=== PATIENT | male | born 1970 | race Caucasian/White ===

== ENCOUNTER 2017-10-01 08:10 | Outpatient (CLI) | payer MEDICARE ==
[2017-10-01 08:54] LABS: Anion Gap 14 mmol/L (10-20); BUN (Urea Nitrogen) 17 mg/dL (8.9-20.6); Calc. Creatinine Clearance 0 mL/min (70-130); Calcium 9.3 mg/dL (7.8-10.44); Carbon Dioxide 22 mmol/L (22-29); Chloride 107 mmol/L (98-107); Estimated GFR-MDRD Greater than 90
--- NOTE | 2017-10-01 12:13 | CT ---
CT ABDOMEN WITH AND WITHOUT IV CONTRAST: Date: 10/01/17 HISTORY: Follow-up kidney cysts. FINDINGS: Correlation is made with the bilateral renal ultrasound dated 03/12/17. The lung bases are clear. There is diffusely decreased attenuation of the liver compared to the sple en consistent with fatty infiltration. The spleen measures 13.0 cm in length. No calcified gallstone s are seen. The pancreas and adrenal glands are normal. No free air, free fluid, or lymphadenopathy seen in the abdomen. No calculi seen in the kidneys or the visualized portions of the ureters. No hydroureteronephrosis n oted on either side. Postcontrast images demonstrate no evidence of a solid enhancing mass on either side. There are low density lesions in the kidneys bilaterally, some of which correspond to the cys ts seen on the ultrasound. The largest mass is consistent with cyst and is located at the inferior p ole of the right kidney measuring 3.5 cm. In the medial aspect of the right mid kidney, there is a 2 .3 cm cystic mass which does not meet CT criteria for a simple cyst, but does not demonstrate defini te abnormal enhancement. (Enhancement is about 15 Hounsfield units.) The other smaller lesions are t oo small to characterize. The appendix is normal. There is colonic diverticulosis. Vascular calcific ations are present without evidence of aneurysmal dilatation of the abdominal aorta. There are degen erative changes in the spine. IMPRESSION: 1. Fatty liver. 2. Borderline splenomegaly. 3. No CT evidence of urinary tract calculi or obstruction. 4. Renal cysts. 5. Indeterminate small renal lesions. 6. Indeterminate right mid renal mass corresponding to the complex cyst on the ultrasound. Size of this mass is stable since the ultrasound. RECOMMENDATION: A follow-up exam is recommended in 6 months. POS: MARKUS
[2017-10-01] MEDS ORDERED: Iopamidol 370 76% 100 ML VIAL ONE (15:42)
== END 2017-10-01 08:11 | disposition home or self-care (01) ==
LOC: CT 08:10
PROVIDERS: ATTEND Urology
DX: N28.1 Cyst of kidney, acquired (principal); Z12.5 Encounter for screening for malignant neoplasm of prostate; K76.0 Fatty (change of) liver, not elsewhere classified; R16.1 Splenomegaly, not elsewhere classified
CPT/HCPCS: 74170; 80048; G0103; 36415

== ENCOUNTER 2017-10-23 08:52 | Outpatient (CLI) | payer MEDICARE | END 2017-10-23 08:53 | disposition home or self-care (01) | LOC: TBSIIMAG 08:52 | PROVIDERS: ATTEND Orthopaedic Surgery | DX: Z53.8 Procedure and treatment not carried out for other reasons (principal) ==

== ENCOUNTER 2017-11-01 11:48 | Outpatient (CLI) | payer MEDICARE ==
--- NOTE | 2017-11-01 15:36 | RAD ---
RIGHT SHOULDER ARTHROGRAM PRIOR TO RIGHT SHOULDER CT: History: Right shoulder pain. FINDINGS: [employer] views show moderate to severe degenerative change at the right shoulder with prominent osteophy shayy from the femoral head and glenoid. Iodinated contrast which was pre-mixed according to protocol for CT arthrogram procedure was injected under fluoroscopic observation via a 22 gauge needle. Patient was sent to CT for post arthrogram CT of right shoulder. PROCEDURE NOTE: Anterior skin over the right shoulder was prepped and draped in a sterile manner. Local anesthesia wa s administered with Lidocaine under fluoroscopic guidance. A 22 gauge spinal needle was used to enter the shoulder join under fluoroscopic guidance. Iodinate contrast was then injected under fluoroscopi c observation. There were no problems or complications. POS: PADMINI
--- NOTE | 2017-11-01 15:55 | CT ---
CT ARTHROGRAM OF THE RIGHT SHOULDER: 11/01/17 INDICATION: Right shoulder pain. TECHNIQUE: Multiple CT images obtained of the right shoulder following intra-articular administration of a dilut e contrast solution. Please see the right shoulder arthrogram for full detail concerning the injectio n technique. FINDINGS: There is advanced right glenohumeral osteoarthrosis. There is prominent marginal osteophyte off the i nferior humeral head. There is prominent full thickness articular cartilage thinning involving the ce ntral and posterior aspect of the glenoid as well as the central, posterior and anterior aspect of th e humeral head. The rotator cuff is intact. The biceps tendon is located. There is small intra-articular body seen within the biceps tendon sheath measuring 4.3 mm. There is a n additional suspicious chondral body seen within the proximal biceps tendon sheath measuring 6 mm on image 32 of series 3. There is mild AC joint osteoarthrosis. No muscular atrophy is grossly evident. No enlarged lymph node s are noted. The visualized right lung is clear. IMPRESSION: 1. Advanced glenohumeral osteoarthrosis with intra-articular bodies seen within the biceps tendo n sheath. 2. Rotator cuff is intact. No atrophy is grossly evident. 3. Mild AC joint osteoarthrosis. POS: TPC
== END 2017-11-01 11:49 | disposition home or self-care (01) ==
LOC: RAD 11:48
PROVIDERS: ATTEND Orthopaedic Surgery
DX: M25.511 Pain in right shoulder (principal); M19.011 Primary osteoarthritis, right shoulder
CPT/HCPCS: 23350

== ENCOUNTER 2017-11-27 10:30 | Observation (INO) | payer MEDICARE ==
[2017-11-27 11:20] VITALS: BMI 37.2
[2017-11-29] MEDS ORDERED: Midazolam HCl 2 mg/2 ml Vial ONE (06:30)
[2017-11-29] MEDS ORDERED: Fentanyl 100 MCG/2 ML VIAL ONE ×3 (06:30→11:16)
[2017-11-29] MEDS ORDERED: Tranexamic Acid 1,000 MG/100 ML BAG ONE ×2 (06:32→10:46)
[2017-11-29] MEDS ORDERED: Levofloxacin 500 mg/D5W 100 ml Premix Bag ONE (06:48)
[2017-11-29] MEDS ORDERED: Clindamycin/D5W 900 mg/50 ml Premix Bag ONE (06:48)
[2017-11-29] MEDS ORDERED: traMADol HCl 50 MG TAB PO PRN ×4 (07:42→15:30)
[2017-11-29] MEDS ORDERED: Promethazine HCl 25 MG/ML VIAL IM PRN ×2 (07:42→10:13)
[2017-11-29] MEDS ORDERED: Ropivacaine 0.2% 550 ML 550 ML NERVE BLCK SCH (07:42)
[2017-11-29] MEDS ORDERED: Ondansetron HCl/PF 4 MG/2 ML Vial IVP PRN ×3 (07:42→15:30)
[2017-11-29] MEDS ORDERED: Zolpidem Tartrate 5 MG TAB PO PRN ×2 (07:42→15:30)
[2017-11-29] MEDS ORDERED: HYDROcodone/Acetaminophen 10/325 mg Tablet PO PRN ×3 (07:42→15:30)
[2017-11-29] MEDS ORDERED: Fentanyl 100 MCG/2 ML VIAL IV PRN (07:47)
--- NOTE | 2017-11-29 09:16 | HP ---
CHIEF COMPLAINT: Right shoulder pain. HISTORY OF PRESENT ILLNESS: Mr. Carolina is a 47-year-old male who is disabled. 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 The patient has had pain for over 3 years in his right shoulder, pain is rat ed as 06/28. The patient received several injections, which gave him several months' relief. T he patient has history of acute psychotic break, treated and on medications. Pain has persisted. The patient has complained and desires to have this surgically intervened. PAST MEDICAL HISTORY: Includes hypertension, depression, hyperlipidemia, anxiety, mitral valve prola pse with mitral valve regurgitation, sinusitis, shoulder arthritis, hyperuricemia, posterior tibial t endinitis, cubital tunnel, carpal tunnel, bronchitis. Diabetes. PAST SURGICAL HISTORY: Hernia, right carpal tunnel release, mitral valve repair, tonsillectomy, uvul ectomy, carpal tunnel in right hand, epididymectomy and spermectomy by Dr. Murphy. MEDICATIONS: Please see administration list for full listing. Cetirizine, clonazepam, fenofibric ac id, metformin, metoprolol, quetiapine, sertraline. ALLERGIES: Positive for PENICILLIN, ZOSYN, TETRACYCLINE causes rash, VANCOMYCIN causes rash, no anap hylaxis. SOCIAL HISTORY: Nonsmoker, nondrinker, does drink caffeine, lives with family. PHYSICAL EXAMINATION: VITAL SIGNS: The patient is afebrile. Currently, his vital signs are stable. GENERAL: Alert and oriented male in no acute distress, resting comfortably in bed. EXTREMITIES: The patient's right upper extremity shows atrophy of the deltoid, supraspinatus as far as range of motion, active elevation 90 degrees, external rotation 30 degrees. The patient has stren gth that is remained intact. NEUROVASCULAR: Intact, 2+ pulses. IMAGING: A CT scan of his right shoulder showing an intact rotator cuff with severe degenerative art hritis and loose bodies. IMPRESSION: Right shoulder osteoarthritis. Plan was a right total shoulder arthroplasty with biceps tenodesis. ASSESSMENT AND PLAN: I discussed with the family the longevity of the shoulder would not last the re mainder of his life. I discussed that we would be performing this procedure to help him with pain co ntrol. I discussed the potential revision, risk of biceps injury tear, subscapularis healing, need f or further surgeries, failure of procedure, continued pain despite surgical intervention, then loss o f life or limb infection. The patient will receive vancomycin, Levaquin, and clindamycin preoperativ cris. The patient also received TXA 1 gram x2 doses. The patient will be followed as an outpatient x 1 day and will be discharged home if he is comfortable tomorrow.
[2017-11-29] MEDS ORDERED: Promethazine HCl 25 MG/ML VIAL SLOW IVP PRN (10:13)
[2017-11-29] MEDS ORDERED: Ropivacaine 0.5% HCl/PF (150 MG/30 ML VIAL) ONE (14:23)
[2017-11-29] MEDS ORDERED: Ropivacaine 0.2% HCl/PF (40 MG/20 ML VIAL) ONE (14:23)
[2017-11-29] MEDS ORDERED: PROPOFOL 200 MG/20 ML VIAL ONE (14:38)
[2017-11-29] MEDS ORDERED: Glycopyrrolate 0.2 MG/ML 5 ML SYRINGE ONE (14:38)
[2017-11-29] MEDS ORDERED: Lidocaine 1% PF 5 ML VIAL ONE (14:38)
[2017-11-29] MEDS ORDERED: ePHEDrine/0.9% NaCl/PF SYRINGE 50 mg/10 ml ONE (14:38)
[2017-11-29] MEDS ORDERED: Dexamethasone 20 MG/5 ML VIAL ONE (14:38)
[2017-11-29] MEDS ORDERED: Ketorolac Tromethamine 30 MG/ML VIAL ONE (14:38)
[2017-11-29] MEDS ORDERED: Ondansetron HCl/PF 4 MG/2 ML Vial ONE (14:38)
[2017-11-29] MEDS ORDERED: Methocarbamol 500 MG TAB PO PRN (15:30)
[2017-11-29] MEDS ORDERED: Acetaminophen 325 MG TAB PO PRN (15:30)
[2017-11-29] MEDS ORDERED: Methocarbamol 1 GM/10 ML VIAL SLOW IVP PRN (15:30)
[2017-11-29] MEDS ORDERED: Bisacodyl 10 MG SUPP PR PRN (15:30)
[2017-11-29] MEDS ORDERED: Ondansetron ODT 4 MG TAB PO PRN (15:30)
[2017-11-29] MEDS ORDERED: diphenhydrAMINE 50 MG CAP PO PRN (15:30)
[2017-11-29] MEDS: Ketorolac Tromethamine 30 MG/ML VIAL IVP SCH ×3 (15:45→22:59)
[2017-11-29] MEDS ORDERED: Famotidine 20 MG TAB PO SCH (16:30)
[2017-11-29] MEDS ORDERED: Clindamycin/D5W 900 MG in Premix Bag 1 BAG IVPB SCH (17:00)
--- NOTE | 2017-11-29 18:33 | PDOC.PN ---
- Subjective Encounter Start Date: 11/29/17 Encounter Start Time: 18:31 Pt seen for management of medical comorbidities, including hypertension. Denies chest pain or shortness of breath. No nausea or vomiting. - Objective MAR Reviewed: Yes Vital Signs & Weight: Weight Weight 290 lb Phys Exam - Physical Examination Obese HEENT: moist MMs L ptosis Neck: supple Respiratory: clear to auscultation bilateral Cardiovascular: RRR Gastrointestinal: soft s/p R shoulder surgery Neurological: moves all 4 limbs Psychiatric: normal affect Dx/Plan (1) Hypertension Code(s): I10 - ESSENTIAL (PRIMARY) HYPERTENSION Status: Chronic (2) DM2 (diabetes mellitus, type 2) Status: Chronic (3) Dyslipidemia Code(s): E78.5 - HYPERLIPIDEMIA, UNSPECIFIED Status: Chronic (4) Anxiety Code(s): F41.9 - ANXIETY DISORDER, UNSPECIFIED Status: Chronic (5) Depression Code(s): F32.9 - MAJOR DEPRESSIVE DISORDER, SINGLE EPISODE, UNSPECIFIED Status : Chronic - Plan plan discussed w/ family, PT/OT * . Monitor vital signs, titrate antihypertensives as needed. PRN IV hydralazine for blood pressure spikes. Start accuchecks, insulin sliding scale. Hold metformin for now. Resume rest of home medications. pain management and DVT prophylaxis per orthopedic surgery. Review of Systems - Review of Systems Respiratory: negative: Cough, Dry, Shortness of Breath, Hemoptysis, SOB with Excertion, Pleuritic Pain, Sputum, Wheezing Cardiovascular: negative: chest pain, palpitations, orthopnea, paroxysmal nocturnal dyspnea, edema, light headedness - Medications/Allergies Allergies/Adverse Reactions: Allergies Allergy/AdvReac Type Severity Reaction Status Date / Time Penicillins Allergy Rash Verified 11/27/17 11:21 piperacillin sodium Allergy severe rash Verified 11/27/17 11:21 [From Zosyn] tazobactam sodium Allergy severe rash Verified 11/27/17 11:21 [From Zosyn] tetracycline [Tetracycline] Allergy Verified 11/27/17 11:21 vancomycin Allergy severe rash Verified 11/27/17 11:21 Medications: Current Medications Acetaminophen (Tylenol) 650 mg PO Q4H PRN PRN Reason: BRADY/T > 101.5F/Mild Pain (1-3) Hydrocodone Bitart/Acetaminophen (Caret 10/325) 1 tab PO Q4H PRN PRN Reason: Pain (1-3) Hydrocodone Bitart/Acetaminophen (Caret 10/325) 2 tab PO Q4H PRN PRN Reason: PAIN (4-6) Hydrocodone Bitart/Acetaminophen (Caret 10/325) 1 tab PO Q4H PRN PRN Reason: Moderate Pain (4-6) Hydrocodone Bitart/Acetaminophen (Caret 10/325) 2 tab PO Q4H PRN PRN Reason: Severe Pain (7-10) Bisacodyl (Dulcolax) 10 mg SD Q6H PRN PRN Reason: Constipation Cetirizine HCl (Zyrtec) 10 mg PO QAM [facility] Clonazepam (Klonopin) 1 mg PO HS [facility] Diphenhydramine HCl (Benadryl) 50 mg PO Q4H PRN PRN Reason: Itching Famotidine (Pepcid) 20 mg PO BID [facility] Fentanyl (Sublimaze) 50 mcg IV Q1H PRN PRN Reason: BREAKTHRU PAIN Ropivacaine (Ropivacaine 0.2% 550 Ml) 550 mls @ 6 mls/hr NERVE BLCK INF [facility] Clindamycin Phosphate/Dextrose (900 mg/ Device) 50 mls @ 100 mls/hr IVPB 1700, 2300 [facility] Stop: 11/29/17 23:29 Last Admin: 11/29/17 17:15 Dose: 50 mls Sodium Chloride (Normal Saline 0.9%) 1,000 mls @ 65 mls/hr IV .[id number] [facility] Vancomycin HCl 2 gm/ Sodium (Chloride) 500 mls @ 250 mls/hr IVPB 1900 [facility] Stop: 11/29/17 23:59 Ketorolac Tromethamine (Toradol) 30 mg IVP Q6HR [facility] Stop: 12/01/17 06:01 Last Admin: 11/29/17 15:45 Dose: Not Given Methocarbamol (Robaxin) 0.75 gm SLOW IVP Q6H PRN PRN Reason: Muscle Spasm Methocarbamol (Robaxin) 1,500 mg PO Q6H PRN PRN Reason: Muscle Spasm Metoprolol Tartrate (Lopressor) 100 mg PO BID [facility] Non-Formulary Medication (Fenofibric Acid [Fenofibric Acid]) 90 mg PO HS [facility] Non-Formulary Medication (Metformin Hcl [Metformin Hcl]) 500 mg PO BID [facility] Non-Formulary Medication (Quetiapine Fumarate [Seroquel Xr]) 50 mg PO HS [facility] Non-Formulary Medication (Sertraline Hcl [Zoloft]) 75 mg PO QAM [facility] Ondansetron HCl (Zofran) 4 mg IVP Q6H PRN PRN Reason: Nausea/Vomiting Ondansetron HCl (Zofran Odt) 4 mg PO Q6H PRN PRN Reason: Nausea/Vomiting Ondansetron HCl (Zofran) 4 mg IVP Q6H PRN PRN Reason: Nausea Promethazine HCl (Phenergan) 12.5 mg IM Q4H PRN PRN Reason: Nausea Sodium Chloride (Flush - Normal Saline) 10 ml IVF PRN PRN PRN Reason: Saline Flush Tramadol HCl (Ultram) 50 mg PO Q6H PRN PRN Reason: Mild Pain (1-3) Tramadol HCl (Ultram) 100 mg PO Q6H PRN PRN Reason: Moderate Pain 4-6 Tramadol HCl (Ultram) 50 mg PO Q6H PRN PRN Reason: Mild Pain (1-3) Tramadol HCl (Ultram) 100 mg PO Q6H PRN PRN Reason: Moderate Pain (4-6) Zolpidem Tartrate (Ambien) 5 mg PO HSPRN PRN PRN Reason: Insomnia Zolpidem Tartrate (Ambien) 5 mg PO HSPRN PRN PRN Reason: Insomnia
[2017-11-29] MEDS ORDERED: HumaLOG 300 UNITS/3 ML VIAL SC PRN (18:35)
[2017-11-29] MEDS ORDERED: Dextrose 5% in Water 1,000 ML IV PRN (18:35)
[2017-11-29] MEDS ORDERED: Dextrose 50% Abboject 50 ML SYRINGE SLOW IVP PRN (18:35)
[2017-11-29] MEDS ORDERED: hydrALAZINE 20 MG/ML VIAL SLOW IVP PRN (18:37)
--- NOTE | 2017-11-29 19:45 | OP ---
DATE OF PROCEDURE: 11/29/2017 PREOPERATIVE DIAGNOSIS: Right shoulder osteoarthritis with centralized glenoid. POSTOPERATIVE DIAGNOSIS: Right shoulder osteoarthritis with centralized glenoid. PROCEDURES PERFORMED: 1. Right total shoulder arthroplasty. 2. Right biceps tenodesis. STAFF: Pantera Becerril M.D. LEARNING DISABILITIES TEACHER: Toby Keys PA-C ANESTHESIA: Heather Aquino MD. The patient received general endotracheal intubation with interscale ne block. ESTIMATED BLOOD LOSS: 300 mL. TOURNIQUET TIME: None. IMPLANTS: A Tornier Flex 5C stem, Tornier Ascend Flex head, 52 x 19 mm offset and a chorda lock larg e 60 glenoid. ANTIBIOTICS: Vancomycin 2 grams, clindamycin 900, Levaquin 500. COMPLICATIONS: None. HISTORY OF PRESENT ILLNESS: Mr. Eden is a 47-year-old male who presented with 3 years of shoulde r pain. The patient has a history of some medical issues to include diabetes, depression, hypertensi on, anxiety disorders, mitral valve prolapse with a history of mitral valve repair, shoulder arthriti s, cubital and carpal tunnel. I discussed with the patient that his right shoulder is arthritic and to fix the problem that he have to undergo a right total shoulder arthroplasty. The patient's parent s as well as the patient understood the risks and benefits of surgery to include pain, scar, bleeding , infection, damage to vital structures, decreased range of motion or strength, failure of procedure, continued pain despite surgical intervention, fracture above or below the stem, losing the stem, nee d for revision surgery in the future. I discussed these risks and benefits of surgery and the patien t's family elected to proceed. A time-out was performed to the patient's right upper extremity as e operative site based on site, consents, and markings. At completion of timeout, the patient's [facility] t upper extremity was prepped and draped in sterile fashion. We made an incision. The patient recei juan alberto preoperative antibiotics and placed in a beach chair position with bony prominences well padded. The patient's shoulder, made an incision in line with the deltopectoral interval down from near the coracoid down towards the humerus down through skin, split the muscle, exposed the patient's subscapu justina. We used peel off technique and peeled the subscapularis off the patient's lesser tuberosity t hrough the osteophytes. We completely exposed the neck as well as to the osteophytes, knock off the inferior osteophyte of the patient's humeral head. We debrided the entire humerus to expose the head , I then after keeping the cuff superiorly, protected, made a cut front to back markings for th e humerus. Removed that and I took another 2 mm to get it close to the articular surface. There was cuff superiorly. We cleaned up the patient's osteophytes around the edges. We went up to size 4 st em, placed hub cap in place and then exposed the glenoid with a 360 degree release of the labrum, sof t tissues, as well as knock off some of the osteophytes inferiorly to expose the patient's glenoid. At completion of this, being happy with exposure with out Bankhart position, we placed our center pos ition for our glenoid for a size 60 after we had trialed. This flattened with an anterior lip with a kind of medialized flattened and had a little bit of posterior B-type glenoid, but had a small anter ior lip which I used to ream down to a smooth and ensured all the cartilage off, felt like I had a go od fit of my trial. I then drilled the 3 chorda lock holes for my pegged glenoid. I removed all the excess bone, washed, trialed, felt like it set flush, and had good overall contact, removed and scra ped some of the superior glenoid just ensure that it did not impact the fit superiorly. I have this washed, placed a SurgiSeal in position, dried the blood out, sucked and washed out and placed cement in the peripheral holes and cemented peg glenoid into position. We then came back to the humerus. W e went up to size 5C untill I had a good mismatch. The patient was able to sublux posteriorly 50 deg nuris, able to come to the side, completely internally rotate as well as overhead elevation. The pilar ent was slightly high riding on his x-rays. I actually was little tighter first. I had impacted the stem and reamed to decrease the size and was also rotated the head so that the offset was more infer ior posterior, being happy with the overall alignment, the rotation, and position. I then removed it and placed my final cemented implant. I drilled 4 suture holes and passed four #5 in W stitch throu gh the subscapularis, passed and through and tied in about neutral across the rotator cuff. I then s ewed the rotator interval with #2 completely closing this, I took my biceps and sorted into the soft tissues with #2-0 Ethibond. We then washed. We closed the deltopectoral interval with 0 Vicryl, jatin sed subcu and luis. The patient will be wearing a sling. He will begin passive range of motion. I will see him back in clinic in 2 weeks.
[2017-11-29] MEDS: Sodium Chloride 0.9% 1,000 ML IV SCH (20:05)
[2017-11-29] MEDS ORDERED: Non-Formulary Item 1 EACH (Metformin Hcl [Metformin Hcl] 500 MG) PO SCH (21:00)
[2017-11-29] MEDS ORDERED: clonazePAM 1 MG TAB PO SCH (21:00)
[2017-11-29] MEDS ORDERED: QUEtiapine Fumarate ER 50 MG TAB PO SCH (21:00)
[2017-11-29] MEDS: Metoprolol Tartrate 50 MG TAB PO SCH (21:10)
[2017-11-29] MEDS ORDERED: Fenofibrate 48 MG TAB PO SCH (22:00)
[2017-11-30] MEDS ORDERED: Clindamycin/D5W 900 MG in Premix Bag 1 BAG IVPB SCH (01:00)
[2017-11-30] MEDS: HYDROcodone/Acetaminophen 10/325 mg Tablet PO PRN ×2 (02:56→13:02)
[2017-11-30] MEDS: Ketorolac Tromethamine 30 MG/ML VIAL IVP SCH ×2 (05:27→12:43)
[2017-11-30] MEDS: Sodium Chloride 0.9% 1,000 ML IV SCH (07:33)
[2017-11-30] MEDS ORDERED: Famotidine 20 MG TAB PO SCH (09:00)
[2017-11-30] MEDS ORDERED: Cetirizine HCl 10 MG TAB PO SCH (09:00)
[2017-11-30] MEDS: Metoprolol Tartrate 50 MG TAB PO SCH (09:40)
[2017-11-30 11:50] VITALS: BP 136/80; TEMP 97.9
--- NOTE | 2017-11-30 11:56 | PDOC.PN ---
- Subjective Encounter Start Date: 11/30/17 Encounter Start Time: 08:40 Pt seen for followup re: hypertension. No complaints today. - Objective MAR Reviewed: Yes Vital Signs & Weight: Vital Signs (12 hours) Temp Pulse Resp BP Pulse Ox 11/30/17 11:49 97.9 F 71 20 136/80 97 11/30/17 08:00 97.8 F 73 18 116/70 91 L 11/30/17 04:39 98.2 F 63 16 123/76 90 L 11/30/17 00:32 98.1 F 72 18 128/67 93 L Weight Weight 290 lb Additional Labs: Accuchecks 11/30/17 11/30/17 11/29/17 10:54 05:29 20:38 POC Glucose 161 H 103 188 H Phys Exam - Physical Examination Obese HEENT: sclera anicteric Neck: supple Respiratory: clear to auscultation bilateral Cardiovascular: RRR Gastrointestinal: soft s/p R shoulder surgery Neurological: moves all 4 limbs Psychiatric: normal affect Dx/Plan (1) Hypertension Code(s): I10 - ESSENTIAL (PRIMARY) HYPERTENSION Status: Chronic (2) DM2 (diabetes mellitus, type 2) Status: Chronic (3) Dyslipidemia Code(s): E78.5 - HYPERLIPIDEMIA, UNSPECIFIED Status: Chronic (4) Anxiety Code(s): F41.9 - ANXIETY DISORDER, UNSPECIFIED Status: Chronic (5) Depression Code(s): F32.9 - MAJOR DEPRESSIVE DISORDER, SINGLE EPISODE, UNSPECIFIED Status : Chronic - Plan * . BP well controlled. Continue the rest of home medications. Plan for discharge today noted, will sign off. Review of Systems - Review of Systems Respiratory: negative: Cough, Dry, Shortness of Breath, Hemoptysis, SOB with Excertion, Pleuritic Pain, Sputum, Wheezing Cardiovascular: negative: chest pain, palpitations, orthopnea, paroxysmal nocturnal dyspnea, edema, light headedness - Medications/Allergies Allergies/Adverse Reactions: Allergies Allergy/AdvReac Type Severity Reaction Status Date / Time Penicillins Allergy Rash Verified 11/27/17 11:21 piperacillin sodium Allergy severe rash Verified 11/27/17 11:21 [From Zosyn] tazobactam sodium Allergy severe rash Verified 11/27/17 11:21 [From Zosyn] tetracycline [Tetracycline] Allergy Verified 11/27/17 11:21 vancomycin Allergy severe rash Verified 11/27/17 11:21 Medications: Current Medications Acetaminophen (Tylenol) 650 mg PO Q4H PRN PRN Reason: BRADY/T > 101.5F/Mild Pain (1-3) Hydrocodone Bitart/Acetaminophen ([place] 10/325) 1 tab PO Q4H PRN PRN Reason: Pain (1-3) Last Admin: 11/29/17 22:57 Dose: 1 tab Hydrocodone Bitart/Acetaminophen (Turlock 10/325) 2 tab PO Q4H PRN PRN Reason: PAIN (4-6) Last Admin: 11/30/17 02:56 Dose: 2 tab Bisacodyl (Dulcolax) 10 mg VT Q6H PRN PRN Reason: Constipation Cetirizine HCl (Zyrtec) 10 mg PO QAM [facility] Last Admin: 11/30/17 09:47 Dose: Not Given Clonazepam (Klonopin) 1 mg PO HS [facility] Last Admin: 11/29/17 21:10 Dose: 1 mg Dextrose/Water (Dextrose 50%) 25 gm SLOW IVP PRN PRN PRN Reason: Hypoglycemia Diphenhydramine HCl (Benadryl) 50 mg PO Q4H PRN PRN Reason: Itching Famotidine (Pepcid) 20 mg PO BID [facility] Last Admin: 11/30/17 09:40 Dose: Not Given Fenofibrate (Tricor) 96 mg PO HS [facility] Fentanyl (Sublimaze) 50 mcg IV Q1H PRN PRN Reason: BREAKTHRU PAIN Glucagon (Glucagon) 1 mg IM PRN PRN PRN Reason: Hypoglycemia Hydralazine HCl (Apresoline) 10 mg SLOW IVP Q6H PRN PRN Reason: SBP Greater Than 170 Ropivacaine (Ropivacaine 0.2% 550 Ml) 550 mls @ 6 mls/hr NERVE BLCK INF [facility] Sodium Chloride (Normal Saline 0.9%) 1,000 mls @ 65 mls/hr IV .[id number] [facility] Last Admin: 11/30/17 07:33 Dose: Not Given Dextrose/Water (D5w) 1,000 mls @ 0 mls/hr IV .Q0M PRN; As Directed PRN Reason: Hypoglycemia Insulin Human Lispro (Humalog) 0 units SC .MILD SLIDING SCALE PRN PRN Reason: Mild Correctional Scale Ketorolac Tromethamine (Toradol) 30 mg IVP Q6HR [facility] Stop: 12/01/17 06:01 Last Admin: 11/30/17 05:27 Dose: 30 mg Methocarbamol (Robaxin) 0.75 gm SLOW IVP Q6H PRN PRN Reason: Muscle Spasm Methocarbamol (Robaxin) 1,500 mg PO Q6H PRN PRN Reason: Muscle Spasm Metoprolol Tartrate (Lopressor) 100 mg PO BID [facility] Last Admin: 11/30/17 09:40 Dose: 100 mg Ondansetron HCl (Zofran Odt) 4 mg PO Q6H PRN PRN Reason: Nausea/Vomiting Ondansetron HCl (Zofran) 4 mg IVP Q6H PRN PRN Reason: Nausea Promethazine HCl (Phenergan) 12.5 mg IM Q4H PRN PRN Reason: Nausea Quetiapine Fumarate (Seroquel Xr) 50 mg PO HS [facility] Last Admin: 11/29/17 21:10 Dose: 50 mg Sertraline [facility] ([facility]oloft) [facility] Last Admin: 11/30/17 09:40 Dose: 75 mg Sodium Chloride (Flush - Normal Saline) 10 ml IVF PRN PRN PRN Reason: Saline Flush Tramadol HCl (Ultram) 50 mg PO Q6H PRN PRN Reason: Mild Pain (1-3) Tramadol HCl (Ultram) 100 mg PO Q6H PRN PRN Reason: Moderate Pain 4-6 Last Admin: 11/29/17 23:44 Dose: 100 mg Zolpidem Tartrate (Ambien) 5 mg PO HSPRN PRN PRN Reason: Insomnia
[2017-11-30] MEDS ORDERED: Fenofibrate 48 MG TAB PO SCH (21:00)
== END 2017-11-30 14:16 | disposition home or self-care (01) ==
LOC: SURG A 11-29 05:36 → INTOOBSV 11-29 05:36 → SURG B 11-29 12:17
PROVIDERS: ADMIT Orthopaedic Surgery; ATTEND Orthopaedic Surgery
PROC: 0RRJ0JZ Replacement of Right Shoulder Joint with Synthetic Substitute, Open Approach (ICD-10-PCS; principal; 2017-11-29)
PROC: 0LS30ZZ Reposition Right Upper Arm Tendon, Open Approach (ICD-10-PCS; 2017-11-29)
PROC: 0RHJ04Z Insertion of Internal Fixation Device into Right Shoulder Joint, Open Approach (ICD-10-PCS; 2017-11-29)
DX: M19.011 Primary osteoarthritis, right shoulder (principal); E11.9 Type 2 diabetes mellitus without complications; I10 Essential (primary) hypertension; F32.9 Major depressive disorder, single episode, unspecified; F41.9 Anxiety disorder, unspecified; M25.711 Osteophyte, right shoulder; E78.5 Hyperlipidemia, unspecified; J32.9 Chronic sinusitis, unspecified; G47.33 Obstructive sleep apnea (adult) (pediatric); J45.909 Unspecified asthma, uncomplicated; Z79.84 Long term (current) use of oral hypoglycemic drugs; Z79.899 Other long term (current) drug therapy; Z88.1 Allergy status to other antibiotic agents; Z88.0 Allergy status to penicillin; Z90.89 Acquired absence of other organs; Z98.890 Other specified postprocedural states
CPT/HCPCS: 23430; 23472; 82962 ×2; 96374; 96376; 97110; 97139 ×3; 97535; A4306; C1713; G0378; G8978; G8979; G8980; G8987; G8988; G8989; 36416; J1100; J1885; J1956; J2001; J2250; J2405; J2704; J2795; J3010; J3370; J3490; J7050

== ENCOUNTER 2017-11-27 10:58 | Outpatient (CLI) | payer MEDICARE ==
[2017-11-27 12:12] LABS: Bilirubin Negative (Negative); Blood, Urine Moderate (Negative); Clarity CLEAR (Clear); Glucose, Urine (Dipstick) Negative (Negative); Leukocyte Negative (Negative); Nitrite Negative (Negative); Protein, Urine (Dipstick) Negative (Neg-Trace); Urobilinogen 0.2 mg/dL (0.2-1.0); pH, Urine 6.5 (5.0-9.0)
[2017-11-27 12:13] LABS: Bacteria/HPF None Seen HPF (None Seen); Hyaline Casts/LPF 0-3 HYALINE CAST LPF (0-3 Hyaline); Squamous Epithelial None Seen HPF (0-3); WBC/HPF 0-3 HPF (0-3)
[2017-11-27 12:20] LABS: Hemoglobin 18.3 g/dL (14.0-18.0); Mean Corpuscular HGB CONC 35.6 g/dL (32.0-36.0); Mean Corpuscular Hemoglobin 33.6 pg (27.0-31.0); Mean Corpuscular Volume 94.4 fl (80.0-94.0); Mean Platelet Volume 7.7 fL (7.4-10.4); Platelet Count 236 thou/uL (130-400); RBC Distribution Width 12.4 % (11.5-14.5); Red Blood Cell (RBC) Count 5.45 mill/uL (4.70-6.10); White Blood Cell (WBC) Count 5.3 thou/uL (4.8-10.8)
[2017-11-27 12:41] LABS: Anion Gap 14 mmol/L (10-20); BUN (Urea Nitrogen) 18 mg/dL (8.9-20.6); Calc. Creatinine Clearance 0 mL/min (70-130); Calcium 10.2 mg/dL (7.8-10.44); Carbon Dioxide 25 mmol/L (22-29); Chloride 107 mmol/L (98-107); Estimated GFR-MDRD 87; Glucose 91 mg/dL (70-105); Potassium 4.8 mmol/L (3.5-5.1); Sodium 141 mmol/L (136-145)
== END 2017-11-27 10:59 | disposition home or self-care (01) ==
LOC: LABBT 10:58
PROVIDERS: ATTEND Orthopaedic Surgery
DX: Z01.812 Encounter for preprocedural laboratory examination (principal); M19.012 Primary osteoarthritis, left shoulder
CPT/HCPCS: 80048; 81001; 85027

== ENCOUNTER 2018-01-08 09:27 | Outpatient (CLI) | payer MEDICARE ==
--- NOTE | 2018-01-08 13:16 | ULT ---
ULTRASOUND RETROPERITONEUM COMPLETE: (RENAL) Date: 01/08/18 HISTORY: 47-year-old male with multiple renal cysts, and a complex right renal lesion noted on CT of 10/01/17, for which follow-up ultrasound was recommended. COMPARISON: CT abdomen with and without contrast of 10/01/17 from [facility]. Renal ultrasoun d of 03/12/[address] [facility] of 08/09/11 from [facility]. Renal ultrasound of 07/19/11 from [facility]. FINDINGS: Again noted are the multiple bilateral renal cysts, right greater than left. The ones on the left are less than 1 cm in size, and fewer in number than on the right. On the right, the largest renal cyst is a round, approximately 3 cm simple cyst at the lower pole. The complex renal lesion in question is at the right mid pole, and measures approximately 2 x 2.5 x 2 .5 cm. It has mixed internal echogenicity, including centrally anechoic cystic region surrounded circ umferentially by a hypechoic component. This began as approximately 2 x 2 x 2 cm on the renal ultraso und of 07/19/11. It is slightly grown since then. Allowing for slight differences in curser placemen t, this appears to be stable compared to the CT of 10/01/17, and either stable or minimally larger th an on the ultrasound of 03/12/17. There is no hydronephrosis bilaterally. Right kidney measures approximately 14 x 6.5 x 6.5 cm. Left kidney measures approximately 12.5 x 6 x 6.5 cm. The pre-void urinary bladder dimensions are 12.5 x 8 x 17 cm (volume was not calculated). The post-void bladder volume is 95 mL. IMPRESSION: 1. Multiple bilateral renal cysts, larger and more numerous on the right than the left. 2. Complex, Bosniak II cystic renal lesion in the right renal mid pole, very slowly growing over the years. 3. Poor bladder emptying. SANDRA Andrea POS: PADMINI
== END 2018-01-08 09:28 | disposition home or self-care (01) ==
LOC: ULT 09:27
PROVIDERS: ATTEND Urology
DX: N28.1 Cyst of kidney, acquired (principal); N28.89 Other specified disorders of kidney and ureter; N32.89 Other specified disorders of bladder
CPT/HCPCS: 76770

== ENCOUNTER 2019-01-20 12:55 | Outpatient (CLI) | payer MEDICARE ==
--- NOTE | 2019-01-20 14:23 | ULT ---
STANDARD BILATERAL RENAL ULTRASOUND: HISTORY: Complex cyst. COMPARISON: Renal ultrasound from 01/08/2018. TECHNIQUE: Real-time fragoso-scale and color evaluation of the kidneys and urinary bladder was performed. FINDINGS: The right kidney measures 14.6 x 8.4 x 7.6 cm, and the left kidney measures 14.1 x 6.8 x 6.9 cm. Pre -void urinary bladder volume is 201 mL. At the superior interpolar region of the right kidney, there is a 2.5 x 2.6 x 2.5 cm cyst, with a sin gle internal septation. This is similar in size to the comparison examination. At the inferior pole is a 3.8 cm simple cyst. There is a 2 x 1.9 x 1.7 cm left interpolar septated cyst, which has grown from the comparison examin ation. There is also a 1.6 x 1.6 x 1.6 cm simple cyst. IMPRESSION: Enlarged left interpolar renal cyst, measuring up to 2 cm. Follow-up renal protocol CT or MRI in three to six months recommended. POS: PDAMINI
== END 2019-01-20 12:56 | disposition home or self-care (01) ==
LOC: BICULT 12:55
PROVIDERS: ATTEND Urology
DX: N28.1 Cyst of kidney, acquired (principal)
CPT/HCPCS: 76770

== ENCOUNTER 2020-02-05 13:43 | Outpatient (CLI) | payer MEDICARE ==
--- NOTE | 2020-02-05 14:41 | ULT ---
Exam: Bilateral renal ultrasound complete: HISTORY: Follow-up complex cyst COMPARISON: 01/21/2020 FINDINGS: Right kidney: 14.5 x 6.7 x 7.1 cm Left kidney: 14.4 x 6.2 x 6.2 cm No renal hydronephrosis. No evidence for abnormal perinephric process. Multiple cysts are noted in both kidneys up to 4.1 cm in the right lower pole. Multiseptated cyst in the right mid kidney region 2.1 x 2.7 cm showing little change from prior study. Unremarkable appearing bladder. IMPRESSION: Multiple bilateral renal cysts including a 2.1 x 2.7 cm septated cyst in the interpolar region of the right kidney showing little change from prior study. Continued appropriate follow-up imaging.
== END 2020-02-05 13:44 | disposition home or self-care (01) ==
LOC: BICULT 13:43
PROVIDERS: ATTEND Urology
DX: N28.1 Cyst of kidney, acquired (principal)
CPT/HCPCS: 76770

== ENCOUNTER 2021-02-04 08:47 | Outpatient (CLI) | payer MEDICARE ==
[2021-02-04] MEDS ORDERED: Iopamidol-370 76% 500 ML 1 ML ONE (12:06)
== END 2021-02-04 08:48 | disposition home or self-care (01) ==
LOC: BICCT 08:47
PROVIDERS: ATTEND Urology
DX: N28.1 Cyst of kidney, acquired (principal); K76.0 Fatty (change of) liver, not elsewhere classified; N28.89 Other specified disorders of kidney and ureter; K57.30 Diverticulosis of large intestine without perforation or abscess without bleeding
CPT/HCPCS: 74170; Q9967

== ENCOUNTER 2021-10-24 10:15 | Outpatient (CLI) | payer MEDICARE ==
[2021-10-25 11:01] LABS: SARS-CoV-2 PCR by NAA Not Detected (NotDetected)
== END 2021-10-24 10:16 | disposition home or self-care (01) ==
LOC: LABBT 10:15
PROVIDERS: ATTEND Orthopaedic Surgery
DX: Z01.812 Encounter for preprocedural laboratory examination (principal); Z20.822 Contact with and (suspected) exposure to COVID-19
CPT/HCPCS: U0003; U0005

== ENCOUNTER 2021-10-28 11:25 | Day surgery (SDC) | payer MEDICARE ==
[2021-10-27 11:19] VITALS: BMI 39.1
[2021-10-28] MEDS ORDERED: Midazolam HCl 2 mg/2 ml Vial ONE (11:50)
[2021-10-28] MEDS ORDERED: PROPOFOL 200 MG/20 ML VIAL ONE (12:30)
[2021-10-28] MEDS ORDERED: Lidocaine 2% PF 5 ML VIAL ONE (12:30)
[2021-10-28] MEDS ORDERED: Dexamethasone 20 MG/5 ML VIAL ONE (12:30)
[2021-10-28] MEDS ORDERED: Ondansetron PF 4 MG/2 ML Vial ONE (12:30)
== END 2021-10-28 14:27 | disposition home or self-care (01) ==
LOC: MRI 11:25
PROVIDERS: ATTEND Orthopaedic Surgery
DX: M19.012 Primary osteoarthritis, left shoulder (principal); M75.102 Unspecified rotator cuff tear or rupture of left shoulder, not specified as traumatic; M25.812 Other specified joint disorders, left shoulder; I11.0 Hypertensive heart disease with heart failure; I50.9 Heart failure, unspecified; E78.5 Hyperlipidemia, unspecified; G47.33 Obstructive sleep apnea (adult) (pediatric); E11.9 Type 2 diabetes mellitus without complications; I48.0 Paroxysmal atrial fibrillation; E66.9 Obesity, unspecified; Z68.34 Body mass index [BMI] 34.0-34.9, adult; Z79.84 Long term (current) use of oral hypoglycemic drugs; Z79.899 Other long term (current) drug therapy; Z88.0 Allergy status to penicillin; Z88.1 Allergy status to other antibiotic agents; Z96.611 Presence of right artificial shoulder joint
CPT/HCPCS: J1100; J2001; J2250; J2405; J2704

== ENCOUNTER 2021-11-28 13:30 | Outpatient (CLI) | payer MEDICARE ==
[2021-11-28 15:32] LABS: #Eosinphils 0.1 10x3/uL (0.0-0.5); #Monocytes 0.5 10x3/uL (0.0-1.1); #Neutrophils 2.4 10x3/uL (1.5-8.4); %Basophils 0.7 % (0.0-2.0); %Eosinophils 3.4 % (0.0-6.0); %Lymphocytes 26.2 % (18.0-47.0); %Monocytes 11.8 % (0.0-10.0); %Neutrophils 57.7 % (40.0-75.0); Hemoglobin 16.2 g/dL (13.5-17.5); Mean Corpuscular HGB CONC 35.2 g/dL (32.0-36.0); Mean Corpuscular Hemoglobin 32.1 pg (27.0-33.0); Mean Corpuscular Volume 91.1 fl (81.2-95.1); Mean Platelet Volume 10.9 fl (7.4-10.4); Platelet Count 184 10x3/uL (150-450); RBC Distribution Width 12.5 % (11.5-14.5); Red Blood Cell (RBC) Count 5.05 10x6/uL (4.32-5.72); White Blood Cell (WBC) Count 4.2 10x3/uL (3.5-10.5)
[2021-11-28 16:04] LABS: Prothrombin Time 10.9 sec (9.5-12.1)
[2021-11-28 16:09] LABS: Anion Gap 13 mmol/L (10-20); BUN (Urea Nitrogen) 15 mg/dL (8.9-20.6); Calc. Creatinine Clearance 0 mL/min (70-130); Calcium 9.2 mg/dL (7.8-10.44); Carbon Dioxide 27 mmol/L (22-29); Chloride 101 mmol/L (98-107); Glucose 321 mg/dL (70-105); Potassium 5.1 mmol/L (3.5-5.1); Sodium 136 mmol/L (136-145)
[2021-11-29 07:27] LABS: SARS-CoV-2 PCR by NAA Not Detected (NotDetected)
== END 2021-11-28 13:31 | disposition home or self-care (01) ==
LOC: LABBT 13:30
PROVIDERS: ATTEND Orthopaedic Surgery
DX: Z01.818 Encounter for other preprocedural examination (principal); M19.012 Primary osteoarthritis, left shoulder; Z20.822 Contact with and (suspected) exposure to COVID-19
CPT/HCPCS: 80048; 85025; 85610; 87081; 93005; U0003; U0005; 93010

== ENCOUNTER 2021-12-01 05:48 | Observation (INO) | payer MEDICARE ==
[2021-11-24 11:54] VITALS: BMI 39.1
[2021-12-01] MEDS ORDERED: Tranexamic Acid 1,000 MG/10 ML VIAL ONE (06:57)
[2021-12-01] MEDS ORDERED: Sodium Chloride 0.9% 100 ML ONE (06:57)
[2021-12-01] MEDS ORDERED: Fentanyl 100 MCG/2 ML VIAL ONE ×3 (07:05→11:46)
[2021-12-01] MEDS ORDERED: Midazolam HCl 2 mg/2 ml Vial ONE (07:05)
[2021-12-01] MEDS ORDERED: Levofloxacin 500 mg/D5W 100 ml Premix Bag ONE (07:06)
[2021-12-01] MEDS ORDERED: Clindamycin/D5W 600 mg/50 ml Premix Bag ONE (08:02)
[2021-12-01] MEDS ORDERED: SUGAMMADEX SODIUM 200 MG/2 ML VIAL ONE (08:08)
[2021-12-01] MEDS ORDERED: Lidocaine 1% PF 5 ML VIAL ONE (08:26)
[2021-12-01] MEDS ORDERED: Ketorolac Tromethamine 30 MG/ML VIAL ONE (08:26)
[2021-12-01] MEDS ORDERED: Rocuronium Bromide 10 MG/ML (10ML VIAL) ONE (08:26)
[2021-12-01] MEDS ORDERED: Ropivacaine 0.5% HCl/PF (150 MG/30 ML VIAL) ONE (08:26)
[2021-12-01] MEDS ORDERED: PROPOFOL 200 MG/20 ML VIAL ONE (08:26)
[2021-12-01] MEDS ORDERED: Ondansetron PF 4 MG/2 ML Vial ONE (08:26)
[2021-12-01] MEDS ORDERED: Glycopyrrolate 0.2 MG/ML 5 ML SYRINGE ONE (08:26)
[2021-12-01] MEDS ORDERED: HYDROcodone/Acetaminophen 10/325 mg Tablet PO PRN (08:45)
[2021-12-01] MEDS ORDERED: Fentanyl 100 MCG/2 ML VIAL SLOW IVP PRN (08:45)
[2021-12-01] MEDS ORDERED: Ondansetron PF 4 MG/2 ML Vial IVP PRN (08:45)
[2021-12-01] MEDS ORDERED: Promethazine HCl 25 MG/ML VIAL IM PRN ×2 (08:45→09:32)
[2021-12-01] MEDS ORDERED: Zolpidem Tartrate 5 MG TAB PO PRN (08:45)
[2021-12-01] MEDS ORDERED: Ketorolac Tromethamine 30 MG/ML VIAL IVP PRN (08:45)
[2021-12-01] MEDS ORDERED: Ropivacaine 0.2% 550 ML 550 ML NERVE BLCK SCH (08:45)
[2021-12-01] MEDS ORDERED: traMADol HCl 50 MG TAB PO PRN ×2 (08:45)
[2021-12-01] MEDS ORDERED: Promethazine HCl 25 MG/ML VIAL IVPB PRN (09:32)
[2021-12-01] MEDS ORDERED: Ondansetron HCl/PF 4 MG/2 ML Vial IVP PRN (09:32)
[2021-12-01] MEDS ORDERED: diphenhydrAMINE 50 MG CAP PO PRN (10:18)
[2021-12-01] MEDS ORDERED: Bisacodyl 10 MG SUPP PR PRN (10:18)
[2021-12-01] MEDS ORDERED: Methocarbamol 500 MG TAB PO PRN (10:18)
[2021-12-01] MEDS ORDERED: Methocarbamol 1 GM/10 ML VIAL SLOW IVP PRN (10:18)
[2021-12-01] MEDS ORDERED: Acetaminophen 325 MG TAB PO PRN (10:18)
[2021-12-01] MEDS ORDERED: Milk Of Magnesia 30 ML UDCUP PO PRN (10:18)
[2021-12-01] MEDS ORDERED: Promethazine HCl 25 MG/ML VIAL ONE (12:10)
[2021-12-01] MEDS: Clindamycin/D5W 900 MG in Premix Bag 1 BAG IVPB SCH ×2 (13:51→16:30)
[2021-12-01] MEDS ORDERED: Loratadine 10 MG TAB PO SCH (22:45)
[2021-12-01] MEDS ORDERED: clonazePAM 1 MG TAB PO SCH (22:45)
[2021-12-01] MEDS ORDERED: Metoprolol Tartrate 100 MG TAB PO SCH (23:30)
[2021-12-02] MEDS: HYDROcodone/Acetaminophen 10/325 mg Tablet PO PRN ×2 (02:43→09:35)
[2021-12-02] MEDS ORDERED: Cyclobenzaprine 10 MG TAB PO PRN (07:16)
[2021-12-02] MEDS ORDERED: metFORMIN 500 MG TAB PO SCH (08:00)
[2021-12-02 08:51] VITALS: BP 131/82; TEMP 98.7
[2021-12-02] MEDS ORDERED: Metoprolol Tartrate 100 MG TAB PO SCH (09:00)
[2021-12-02] MEDS ORDERED: clonazePAM 1 MG TAB PO SCH (21:00)
[2021-12-02] MEDS ORDERED: FENOFIBRIC ACID PO SCH (21:00)
[2021-12-02] MEDS ORDERED: Loratadine 10 MG TAB PO SCH (21:00)
== END 2021-12-02 11:40 | disposition home or self-care (01) ==
LOC: SDC 05:48 → INTOOBSV 10:18 → SURG B 10:18 → SURG A 11:40
PROVIDERS: ADMIT Orthopaedic Surgery; ATTEND Orthopaedic Surgery
PROC: 0LQ20ZZ Repair Left Shoulder Tendon, Open Approach (ICD-10-PCS; principal; 2021-12-01)
PROC: 3E0T3BZ Introduction of Anesthetic Agent into Peripheral Nerves and Plexi, Percutaneous Approach (ICD-10-PCS; 2021-12-01)
DX: M75.22 Bicipital tendinitis, left shoulder (principal); M75.112 Incomplete rotator cuff tear or rupture of left shoulder, not specified as traumatic; S43.492A Other sprain of left shoulder joint, initial encounter; G47.33 Obstructive sleep apnea (adult) (pediatric); E78.5 Hyperlipidemia, unspecified; I10 Essential (primary) hypertension; I34.1 Nonrheumatic mitral (valve) prolapse; E11.9 Type 2 diabetes mellitus without complications; Z79.84 Long term (current) use of oral hypoglycemic drugs; Z79.899 Other long term (current) drug therapy; Z88.0 Allergy status to penicillin; Z88.1 Allergy status to other antibiotic agents; Z96.611 Presence of right artificial shoulder joint; Z20.822 Contact with and (suspected) exposure to COVID-19; Z01.818 Encounter for other preprocedural examination; M19.012 Primary osteoarthritis, left shoulder
CPT/HCPCS: 23430; 64416; 80048; 82962; 85025; 85610; 87081; 93005; 96374; 97116 ×2; 97139 ×3; 97530; 97535; A4306; C1713 ×3; G0378 ×2; U0003; U0005; 36416; 93010; J1885; J1956; J2250; J2405; J2550; J2704; J2795; J3010; J3490

== ENCOUNTER 2022-01-23 11:40 | Outpatient (CLI) | payer MEDICARE | END 2022-01-23 11:41 | disposition home or self-care (01) | LOC: BICULT 11:40 | PROVIDERS: ATTEND Urology | DX: N28.1 Cyst of kidney, acquired (principal) | CPT/HCPCS: 76770 ==

== ENCOUNTER 2022-03-10 13:21 | Outpatient (CLI) | payer MEDICARE ==
[2022-03-11 16:05] LABS: SARS-CoV-2 PCR by NAA Not Detected (NotDetected)
== END 2022-03-10 13:22 | disposition home or self-care (01) ==
LOC: LABBT 13:21
PROVIDERS: ATTEND Orthopaedic Surgery
DX: Z20.822 Contact with and (suspected) exposure to COVID-19 (principal)
CPT/HCPCS: U0003; U0005

== ENCOUNTER 2022-03-15 05:45 | Day surgery (SDC) | payer MEDICARE ==
[2022-03-13 10:20] VITALS: BMI 39.8
[2022-03-15] MEDS ORDERED: Lidocaine 1% w/Epinephrine 1:100K 20 ML VIAL ONE (06:44)
[2022-03-15] MEDS ORDERED: Clindamycin/D5W 900 mg/50 ml Premix Bag ONE (06:50)
[2022-03-15] MEDS ORDERED: Clindamycin/D5W 600 mg/50 ml Premix Bag ONE (06:51)
[2022-03-15] MEDS ORDERED: Fentanyl 250 MCG/5 ML VIAL ONE (06:59)
[2022-03-15] MEDS ORDERED: Ondansetron PF 4 MG/2 ML Vial ONE (07:08)
[2022-03-15] MEDS ORDERED: PROPOFOL 200 MG/20 ML VIAL ONE (07:08)
[2022-03-15] MEDS ORDERED: PHENYLEPHRINE-NS 100 MCG/ML 10 ML SYRINGE ONE (07:08)
[2022-03-15] MEDS ORDERED: Glycopyrrolate 0.2 MG/ML 5 ML SYRINGE ONE (07:08)
== END 2022-03-15 09:15 | disposition home or self-care (01) ==
LOC: SDC 05:45
PROVIDERS: ATTEND Orthopaedic Surgery
PROC: 01N50ZZ Release Median Nerve, Open Approach (ICD-10-PCS; principal; 2022-03-15)
DX: G56.02 Carpal tunnel syndrome, left upper limb (principal); M67.922 Unspecified disorder of synovium and tendon, left upper arm; G47.33 Obstructive sleep apnea (adult) (pediatric); E78.5 Hyperlipidemia, unspecified; M19.90 Unspecified osteoarthritis, unspecified site; E11.9 Type 2 diabetes mellitus without complications; I11.9 Hypertensive heart disease without heart failure; Z79.84 Long term (current) use of oral hypoglycemic drugs; Z79.899 Other long term (current) drug therapy; Z88.0 Allergy status to penicillin; Z88.1 Allergy status to other antibiotic agents
CPT/HCPCS: J2405; J2704; J3010; J3490

== ENCOUNTER 2022-07-29 20:24 | Inpatient (IN) | payer MEDICARE ==
[2022-07-29 21:12] LABS: #Lymphocytes 1.4 thou/uL (1.20-3.40); #Monocytes 0.9 thou/uL (0.11-0.59); #Neutrophils 4.6 thou/uL (1.40-6.50); %Basophils 0.1 % (0.0-1.0); %Eosinophils 0.3 % (0.0-10.0); %Lymphocytes 20.5 % (21.0-51.0); %Monocytes 12.9 % (0.0-10.0); %Neutrophils 66.2 % (42.0-75.0); Hemoglobin 15.2 g/dL (14.0-18.0); Mean Corpuscular HGB CONC 34.9 g/dL (32.0-36.0); Mean Corpuscular Hemoglobin 33.6 pg (27.0-31.0); Mean Corpuscular Volume 96.3 fL (78.0-98.0); Mean Platelet Volume 7.9 fL (7.4-10.4); Platelet Count 183 thou/uL (130-400); RBC Distribution Width 12.8 % (11.5-14.5); Red Blood Cell (RBC) Count 4.53 mill/uL (4.70-6.10); White Blood Cell (WBC) Count 6.9 thou/uL (4.8-10.8)
[2022-07-29] MEDS ORDERED: OLANZapine 5 MG TAB PO SCH (21:15)
[2022-07-29 21:33] LABS: ALT (SGPT) 56 U/L (8-55); AST (SGOT) 56 U/L (5-34); Albumin 4.2 g/dL (3.5-5.0); Alkaline Phosphatase 63 U/L (40-110); Anion Gap 15 mmol/L (10-20); BUN (Urea Nitrogen) 28 mg/dL (8.4-25.7); Bilirubin, Total 1.3 mg/dL (0.2-1.2); Calc. Creatinine Clearance 0 mL/min (70-130); Calcium 9.2 mg/dL (7.8-10.44); Carbon Dioxide 22 mmol/L (22-29); Chloride 112 mmol/L (98-107); Estimated GFR 74; Globulin 2.6 g/dL (2.4-3.5); Glucose 202 mg/dL (70-105); Potassium 3.3 mmol/L (3.5-5.1); Protein, Total 6.8 g/dL (6.0-8.3); Sodium 146 mmol/L (136-145)
[2022-07-29 21:34] LABS: Acetaminophen Less than 10.0 mcg/mL (10.0-30.0); Alcohol Less than 10 mg/dL (Less than 10); CK (CPK) 2781 U/L (30-200); Salicylate Less than 8.0 mg/dL (15.0-30.0)
[2022-07-29 22:43] LABS: Bacteria/HPF None Seen HPF (None Seen); Bilirubin Negative (Negative); Blood, Urine 2+ (Negative); Clarity Turbid (Clear); Glucose, Urine (Dipstick) 30 mg/dL (Negative); Ketone, Urine Trace mg/dL (Negative); Leukocyte Negative Leu/uL (Negative); Nitrite Negative (Negative); Protein, Urine (Dipstick) 200 mg/dL (Neg-Trace); Specific Gravity, Urine 1.033 (1.002-1.036); Squamous Epithelial None Seen HPF (0-3); Urobilinogen Normal mg/dL (Less than 2); WBC/HPF 0-3 HPF (0-3); pH, Urine 5.5 (5.0-9.0)
[2022-07-29 22:46] LABS: Amphetamine Not Detected (NotDetected); Barbiturates Screen Not Detected (NotDetected); Benzodiazepine Screen Not Detected (NotDetected); Cocaine Metabolite Screen Not Detected (NotDetected); Methadone Not Detected (NotDetected); Methamphetamine Not Detected (NotDetected); Opiate Screen Not Detected (NotDetected); Oxycodone Screen Not Detected (NotDetected); Phencyclidine (PCP) Not Detected (NotDetected); THC/Cannabinoid Screen Not Detected (NotDetected); Tricyclic Screen Detected (NotDetected)
[2022-07-29] MEDS ORDERED: Diazepam 5 MG TAB ONE (23:00)
[2022-07-29 23:07] LABS: SARS-CoV-2 NAA Rapid Test Not Detected (NotDetected)
[2022-07-30] MEDS ORDERED: Acetaminophen 650 MG Suppository PR PRN (00:04)
[2022-07-30] MEDS ORDERED: Ondansetron PF 4 MG/2 ML Vial IVP PRN (00:04)
[2022-07-30] MEDS ORDERED: Ondansetron ODT 4 MG TAB PO PRN (00:04)
[2022-07-30] MEDS ORDERED: Acetaminophen 325 MG TAB PO PRN (00:04)
[2022-07-30] MEDS: Sodium Chloride 0.9% 1,000 ML IV SCH ×3 (01:09→21:21)
[2022-07-30] MEDS ORDERED: Ziprasidone 20 MG VIAL IM SCH (02:15)
[2022-07-30] MEDS ORDERED: Ziprasidone 20 MG VIAL ONE (02:52)
[2022-07-30] MEDS ORDERED: Sterile Water 10 ML ONE (02:56)
[2022-07-30 07:28] LABS: #Eosinphils 0.1 thou/uL (0.0-0.7); #Lymphocytes 1.5 thou/uL (1.20-3.40); #Monocytes 0.7 thou/uL (0.11-0.59); #Neutrophils 3.5 thou/uL (1.40-6.50); %Basophils 0.7 % (0.0-1.0); %Eosinophils 1.6 % (0.0-10.0); %Monocytes 11.9 % (0.0-10.0); %Neutrophils 59.9 % (42.0-75.0); Hemoglobin 14.5 g/dL (14.0-18.0); Mean Corpuscular HGB CONC 35.1 g/dL (32.0-36.0); Mean Corpuscular Hemoglobin 34.6 pg (27.0-31.0); Mean Corpuscular Volume 98.4 fL (78.0-98.0); Mean Platelet Volume 7.9 fL (7.4-10.4); Platelet Count 167 thou/uL (130-400); RBC Distribution Width 12.9 % (11.5-14.5); White Blood Cell (WBC) Count 5.8 thou/uL (4.8-10.8)
[2022-07-30 07:31] LABS: Hemoglobin A1c 7.5 % (4.0-6.0)
[2022-07-30 08:05] LABS: HBSAg Index 0.33 S/CO (0-0.99); Hep A IgM AB Non-Reactive (NonReactive); Hep A IgM S/CO 0.14 S/CO (0-0.79); Hep B Surf Ag Non-Reactive S/CO (NonReactive); Hep C IgG Ab Non-Reactive (NonReactive); Hep C Index 0.15 S/CO (0-0.79)
[2022-07-30 08:07] LABS: HBCM Index 0.11 S/CO (0-0.79); Hepatitis B Core IgM Abs Non-Reactive (NonReactive)
[2022-07-30 08:22] LABS: Anion Gap 14 mmol/L (10-20); BUN (Urea Nitrogen) 23 mg/dL (8.4-25.7); CK (CPK) 2327 U/L (30-200); Calc. Creatinine Clearance 0 mL/min (70-130); Calcium 8.1 mg/dL (7.8-10.44); Carbon Dioxide 19 mmol/L (22-29); Chloride 114 mmol/L (98-107); Estimated GFR 99; Glucose 135 mg/dL (70-105); Potassium 3.5 mmol/L (3.5-5.1); Sodium 143 mmol/L (136-145)
[2022-07-30] MEDS ORDERED: Enoxaparin Sodium 40 MG/0.4 ML SYRINGE ONE (09:34)
[2022-07-30] MEDS ORDERED: D5 1/2 NS w/20 mEq KCL 1,000 ML ONE (09:35)
[2022-07-30] MEDS: Enoxaparin Sodium 40 MG/0.4 ML SYRINGE SC SCH (09:37)
[2022-07-30] MEDS: Venlafaxine HCl XR 75 MG CAP PO SCH ×2 (10:00→20:41)
[2022-07-30] MEDS ORDERED: Lorazepam 2 MG/ML VIAL ONE (12:25)
[2022-07-30] MEDS ORDERED: diphenhydrAMINE 50 MG/ML VIAL ONE (12:25)
[2022-07-30] MEDS ORDERED: Haloperidol Lactate 5 MG/ML VIAL ONE (12:33)
[2022-07-30 16:33] VITALS: BMI 39.1
[2022-07-30] MEDS: Morphine 2 MG/ML VIAL SLOW IVP PRN (18:48)
[2022-07-30] MEDS: Pantoprazole 40 MG VIAL IVP SCH (20:41)
[2022-07-30] MEDS ORDERED: QUEtiapine Fumarate ER 50 MG TAB PO SCH (21:00)
[2022-07-30] MEDS ORDERED: SEROQUEL 100 MG PO SCH (21:00)
[2022-07-30] MEDS ORDERED: Electrolyte Replacement Protocol 1 EACH FS PRN (21:00)
[2022-07-30] MEDS ORDERED: Metoprolol Tartrate 100 MG TAB PO SCH (21:45)
[2022-07-30 21:47] LABS: Anion Gap 13 mmol/L (10-20); BUN (Urea Nitrogen) 20 mg/dL (8.4-25.7); Calc. Creatinine Clearance 178 mL/min (70-130); Calcium 8.7 mg/dL (7.8-10.44); Carbon Dioxide 22 mmol/L (22-29); Chloride 105 mmol/L (98-107); Estimated GFR 96; Glucose 162 mg/dL (70-105); Potassium 3.3 mmol/L (3.5-5.1); Sodium 137 mmol/L (136-145)
[2022-07-31 05:15] LABS: ALT (SGPT) 55 U/L (8-55); AST (SGOT) 49 U/L (5-34); Albumin 3.9 g/dL (3.5-5.0); Alkaline Phosphatase 67 U/L (40-110); Bilirubin, Direct 0.5 mg/dL (0.1-0.3); Bilirubin, Total 1.5 mg/dL (0.2-1.2); Magnesium 1.6 mg/dL (1.6-2.6); Protein, Total 6.4 g/dL (6.0-8.3)
[2022-07-31 05:26] LABS: Anion Gap 16 mmol/L (10-20); BUN (Urea Nitrogen) 17 mg/dL (8.4-25.7); CK (CPK) 1693 U/L (30-200); Calc. Creatinine Clearance 201 mL/min (70-130); Calcium 8.6 mg/dL (7.8-10.44); Carbon Dioxide 20 mmol/L (22-29); Chloride 104 mmol/L (98-107); Estimated GFR 105; Glucose 154 mg/dL (70-105); Potassium 3.4 mmol/L (3.5-5.1); Sodium 137 mmol/L (136-145)
[2022-07-31] MEDS: Sodium Chloride 0.9% 1,000 ML IV SCH ×2 (05:38→20:27)
[2022-07-31] MEDS ORDERED: Potassium Chloride 20 MEQ TAB PO SCH (08:00)
[2022-07-31] MEDS ORDERED: Magnesium 2 GM/50 ML(in water) 2 GM in Premix Bag 1 BAG IVPB SCH (08:00)
[2022-07-31] MEDS: Venlafaxine HCl XR 75 MG CAP PO SCH ×2 (09:18→20:13)
[2022-07-31] MEDS: Metoprolol Tartrate 100 MG TAB PO SCH ×2 (09:20→20:12)
[2022-07-31] MEDS: Enoxaparin Sodium 40 MG/0.4 ML SYRINGE SC SCH (09:23)
[2022-07-31] MEDS: Pantoprazole 40 MG VIAL IVP SCH ×2 (09:23→20:13)
[2022-07-31] MEDS ORDERED: Ziprasidone 20 MG VIAL IM SCH (10:45)
[2022-07-31] MEDS: Morphine 2 MG/ML VIAL SLOW IVP PRN (15:17)
[2022-07-31] MEDS ORDERED: SEROQUEL 100 MG PO SCH (21:00)
[2022-07-31] MEDS ORDERED: clonazePAM 1 MG TAB PO SCH (21:15)
[2022-08-01] MEDS: Morphine 2 MG/ML VIAL SLOW IVP PRN ×3 (04:21→14:07)
[2022-08-01 05:19] LABS: Anion Gap 13 mmol/L (10-20); BUN (Urea Nitrogen) 16 mg/dL (8.4-25.7); CK (CPK) 640 U/L (30-200); Calc. Creatinine Clearance 180 mL/min (70-130); Calcium 8.4 mg/dL (7.8-10.44); Carbon Dioxide 22 mmol/L (22-29); Chloride 105 mmol/L (98-107); Estimated GFR 95; Glucose 155 mg/dL (70-105); Potassium 3.4 mmol/L (3.5-5.1); Sodium 137 mmol/L (136-145)
[2022-08-01] MEDS: Sodium Chloride 0.9% 1,000 ML IV SCH ×2 (05:53→17:34)
[2022-08-01] MEDS ORDERED: Potassium Chloride 20 MEQ TAB PO SCH (06:15)
[2022-08-01] MEDS: Metoprolol Tartrate 100 MG TAB PO SCH ×2 (08:29→20:20)
[2022-08-01] MEDS: Enoxaparin Sodium 40 MG/0.4 ML SYRINGE SC SCH (08:29)
[2022-08-01] MEDS: Venlafaxine HCl XR 75 MG CAP PO SCH ×2 (08:30→20:16)
[2022-08-01] MEDS: Pantoprazole 40 MG VIAL IVP SCH ×2 (08:34→20:17)
[2022-08-01 13:12] LABS: Magnesium 1.9 mg/dL (1.6-2.6); Potassium 3.6 mmol/L (3.5-5.1)
[2022-08-01] MEDS ORDERED: Magnesium 2 GM/50 ML(in water) 2 GM in Premix Bag 1 BAG IVPB SCH (13:30)
[2022-08-01] MEDS ORDERED: Ziprasidone 20 MG VIAL IM SCH (15:30)
[2022-08-01] MEDS: clonazePAM 1 MG TAB PO SCH (20:16)
[2022-08-02] MEDS ORDERED: hydrOXYzine 25 MG TAB PO SCH (01:10)
[2022-08-02] MEDS: Sodium Chloride 0.9% 1,000 ML IV SCH ×2 (03:00→13:42)
[2022-08-02 05:18] LABS: Anion Gap 13 mmol/L (10-20); BUN (Urea Nitrogen) 13 mg/dL (8.4-25.7); CK (CPK) 445 U/L (30-200); Calc. Creatinine Clearance 205 mL/min (70-130); Calcium 8.6 mg/dL (7.8-10.44); Carbon Dioxide 24 mmol/L (22-29); Chloride 106 mmol/L (98-107); Estimated GFR 105; Glucose 118 mg/dL (70-105); Potassium 3.6 mmol/L (3.5-5.1); Sodium 139 mmol/L (136-145)
[2022-08-02] MEDS: Metoprolol Tartrate 100 MG TAB PO SCH ×2 (07:49→20:11)
[2022-08-02] MEDS: Venlafaxine HCl XR 75 MG CAP PO SCH ×2 (07:50→20:10)
[2022-08-02] MEDS: Enoxaparin Sodium 40 MG/0.4 ML SYRINGE SC SCH (07:50)
[2022-08-02] MEDS: Pantoprazole 40 MG VIAL IVP SCH ×2 (07:50→20:18)
[2022-08-02] MEDS: Lorazepam 1 MG TAB PO PRN ×2 (09:37→17:50)
[2022-08-02] MEDS: clonazePAM 1 MG TAB PO SCH (20:11)
[2022-08-03] MEDS: Sodium Chloride 0.9% 1,000 ML IV SCH ×2 (01:15→10:18)
[2022-08-03] MEDS: Lorazepam 1 MG TAB PO PRN ×4 (03:32→18:07)
[2022-08-03] MEDS: Venlafaxine HCl XR 75 MG CAP PO SCH ×2 (07:54→20:09)
[2022-08-03] MEDS: Metoprolol Tartrate 100 MG TAB PO SCH ×2 (07:55→20:09)
[2022-08-03] MEDS: Enoxaparin Sodium 40 MG/0.4 ML SYRINGE SC SCH (07:55)
[2022-08-03] MEDS: Pantoprazole 40 MG VIAL IVP SCH ×2 (07:55→20:13)
[2022-08-03] MEDS: metFORMIN 500 MG TAB PO SCH (18:07)
[2022-08-03] MEDS: Fenofibrate 48 MG TAB PO SCH (20:08)
[2022-08-03] MEDS: clonazePAM 1 MG TAB PO SCH (20:09)
[2022-08-04] MEDS: Lorazepam 1 MG TAB PO PRN ×4 (04:16→17:08)
[2022-08-04] MEDS: Metoprolol Tartrate 100 MG TAB PO SCH ×2 (08:18→19:49)
[2022-08-04] MEDS: Venlafaxine HCl XR 75 MG CAP PO SCH ×2 (08:18→19:48)
[2022-08-04] MEDS: metFORMIN 500 MG TAB PO SCH ×2 (08:18→17:58)
[2022-08-04] MEDS: Pantoprazole 40 MG VIAL IVP SCH ×2 (08:19→19:48)
[2022-08-04] MEDS: Enoxaparin Sodium 40 MG/0.4 ML SYRINGE SC SCH (08:19)
[2022-08-04 16:22] VITALS: BP 149/81; TEMP 98.3
[2022-08-04] MEDS: Sodium Chloride 0.9% 1,000 ML IV SCH ×2 (17:17→17:18)
[2022-08-04] MEDS: Fenofibrate 48 MG TAB PO SCH (19:49)
[2022-08-04] MEDS: clonazePAM 1 MG TAB PO SCH (19:49)
== END 2022-08-04 20:10 | DRG 885 ==
LOC: ERS 20:24 → ERHOLD 23:08 → 2NO 07-30 15:40
PROVIDERS: ADMIT Student in an Organized Health Care Education/Training Program; ATTEND Internal Medicine
DX: F20.9 Schizophrenia, unspecified (principal); M62.82 Rhabdomyolysis; E87.1 Hypo-osmolality and hyponatremia; Z20.822 Contact with and (suspected) exposure to COVID-19; I10 Essential (primary) hypertension; E78.00 Pure hypercholesterolemia, unspecified; F31.9 Bipolar disorder, unspecified; E87.6 Hypokalemia; E80.6 Other disorders of bilirubin metabolism; E11.9 Type 2 diabetes mellitus without complications; Z88.1 Allergy status to other antibiotic agents; Z88.0 Allergy status to penicillin; Z79.84 Long term (current) use of oral hypoglycemic drugs; Z79.899 Other long term (current) drug therapy
CPT/HCPCS: 36415; 36416; 76705; 80048; 80053; 80074; 80076; 80306; 80307; 81003; 81015; 82550; 83036; 83735; 84443; 85025; 93005; C9113; J1200; J1630; J1650; J2060; J2270; J3475; J3480; J3486; J7050; U0002

== ENCOUNTER 2023-07-16 09:30 | Outpatient (CLI) | payer MEDICARE | END 2023-07-16 09:31 | disposition home or self-care (01) | LOC: BICCT 09:30 | PROVIDERS: ATTEND Urology | DX: R30.0 Dysuria (principal); N28.1 Cyst of kidney, acquired; K57.30 Diverticulosis of large intestine without perforation or abscess without bleeding; K63.89 Other specified diseases of intestine; K40.20 Bilateral inguinal hernia, without obstruction or gangrene, not specified as recurrent | CPT/HCPCS: 74176 ==